=== PATIENT | female | born 1960 | race Caucasian/White ===

== ENCOUNTER 2022-07-08 05:27 | Inpatient (IN) | payer BC ==
[2022-07-08] VITALS (25 sets, daily range): BP systolic 102–154; BP diastolic 41–88
[~2022-07-08] VITALS: Ht 165.1 cm; Wt 68.0 kg
[~2022-07-08 05:27] MED LIST: ACET-2605 PO; BUPR300T52 PO; ESTR1PAT7 TD; IBUP-51 PO; NORE5TAB PO; [UNRECOGNIZED DRUG - OTHER] PO
--- NOTE | 2022-07-08 05:35 | NUR ---
[id number]. MID STERNAL CP RADIATING TO BACK X 0230. +N/+V. W/ ASSOCIATED SOB GIVEN 1 SPRAY NITRO, 324 ASA, ZOFRAN 4MG. PATIENT IS AAOX4. ABLE TO MAKE NEEDS KNOWN. STILL NAUSEATED. PLACED COMFORTABLY IN BED. VITALS CHECKED.
--- NOTE | 2022-07-08 05:40 | NUR ---
PT CAME WITH IV BAKARI G20 ON LEFT HAND
--- NOTE | 2022-07-08 05:50 | NUR ---
EKG DONE, STRIP ATTACHED TO CHART
[2022-07-08] MEDS ORDERED: ONDANSETRON HCL/PF 4 MG/2 ML VIAL IVP ONE (06:30)
[2022-07-08] MEDS ORDERED: MORPHINE SULFATE INJ 2 MG/ML DISP.SYRIN IV ONE (06:30)
[2022-07-08 06:32] LABS: BASOPHILS % (AUTO) 0.3 % (0.0-2.0); EOSINOPHILS % (AUTO) 0.3 % (0.0-6.0); HEMATOCRIT 41 % (33-45); HEMOGLOBIN 13.6 g/dL (11.5-14.8); LYMPHOCYTES # (AUTO) 1.3 K/uL (0.8-4.8); LYMPHOCYTES % (AUTO) 9.3 % (20.0-44.0); MEAN CORPUSCULAR HGB CONC 33 g/dl (31.0-36.0); MEAN CORPUSCULAR VOLUME 90 fL (82-100); MONOCYTES # (AUTO) 0.5 K/uL (0.1-1.30); MONOCYTES % (AUTO) 3.6 % (2.0-12.0); NEUTROPHILS # (AUTO) 11.9 K/uL (1.8-8.9); NEUTROPHILS % (AUTO) 86.5 % (43.0-81.0); PLATELET COUNT (AUTO) 338 K/uL (150-450); RED BLOOD CELL COUNT(AUTO) 4.56 MIL/uL (4.0-5.2); WHITE BLOOD COUNT (AUTO) 13.7 K/uL (4.3-11.0)
[2022-07-08 06:45] LABS: CARBON DIOXIDE 21 mmol/L (21-32); CHLORIDE 107 mmol/L (98-107); CREATININE 0.9 mg/dL (0.6-1.3); GLUCOSE 148 mg/dL (74-106); POTASSIUM 3.4 mmol/L (3.5-5.1); SODIUM SERUM 140 mmol/L (136-145); UREA NITROGEN, BLOOD 20 mg/dL (7-18)
[2022-07-08] MEDS ORDERED: MORPHINE SULFATE INJ 4 MG/ML DISP.SYRIN ONE (06:57)
[2022-07-08] MEDS ORDERED: ONDANSETRON 4 MG TAB.RAPDIS ONE (06:57)
[2022-07-08] MEDS ORDERED: ASPIRIN 325 MG TABLET ONE (06:58)
[2022-07-08] MEDS ORDERED: ONDANSETRON HCL/PF 4 MG/2 ML VIAL ONE (06:58)
[2022-07-08] MEDS ORDERED: ASPIRIN 325 MG TABLET PO ONE (07:00)
--- NOTE | 2022-07-08 07:00 | NUR ---
DR ROMERO MADE AWARE ABOUT PT CRITICAL LAB: TROP 274
--- NOTE | 2022-07-08 07:17 | NUR ---
COVID SWAB DONE AND SENT TO LAB
--- NOTE | 2022-07-08 07:21 | NUR ---
XRAY DONE AT BEDSIDE
--- NOTE | 2022-07-08 07:21 | NUR ---
REPORT GIVEN TO ALLEN LEDEZMA
[2022-07-08] MEDS ORDERED: ENOXAPARIN SODIUM 60 MG/0.6 ML DISP.SYRIN SQ ONE ×2 (07:30→07:38)
--- NOTE | 2022-07-08 11:05 | NUR ---
PT ASSISTED TO GO TO RESTROOM
--- NOTE | 2022-07-08 11:12 | NUR ---
MD MADE AWARE ABOUT PT REQUEST ABOUT XYLOCAINE SPRAY FOR HER BIG TOE L INJURY. PAIN ISAT PRESENT IS 4/10 AT THE BACK
--- NOTE | 2022-07-08 11:24 | NUR ---
room 324-2
--- NOTE | 2022-07-08 11:45 | NUR ---
DR WHATLEY AT BEDSIDE
--- NOTE | 2022-07-08 11:51 | NUR ---
npo per DR. Vegas
[2022-07-08] MEDS ORDERED: METOPROLOL TARTRATE INJ 5 MG/5 ML AMPUL IV ONE (12:00)
--- NOTE | 2022-07-08 12:05 | NUR ---
report given to Angela for continuation of care
[2022-07-08] MEDS ORDERED: ONDANSETRON HCL/PF 4 MG/2 ML VIAL IVP PRN (13:30)
[2022-07-08] MEDS ORDERED: ACETAMINOPHEN 325 MG TABLET PO PRN (13:30)
[2022-07-08] MEDS ORDERED: MAG HYDROX/AL HYDROX/SIMETH 30 ML UDC PO PRN (13:30)
[2022-07-08] MEDS ORDERED: MAGNESIUM HYDROXIDE 30 ML UDC PO PRN (13:30)
[2022-07-08] MEDS ORDERED: ZOLPIDEM TARTRATE 5 MG TABLET PO PRN (13:30)
[2022-07-08] MEDS ORDERED: Z GUARD REMEDY 4 OZ OINT TP PRN (13:30)
[2022-07-08] MEDS ORDERED: MORPHINE SULFATE INJ 2 MG/ML DISP.SYRIN IV PRN (13:30)
--- NOTE | 2022-07-08 13:47 | NUR ---
patient taken to OR
[2022-07-08] MEDS ORDERED: IV SET PRIMARY PUMP SET 1 EA INFUS.SET MC ONE (13:50)
[2022-07-08] MEDS ORDERED: IV NS 0.9% 1,000 ML ONE (13:50)
[2022-07-08] MEDS ORDERED: IODIXANOL 150 ML IV ONE (13:51)
[2022-07-08] MEDS ORDERED: methylPREDNISolone SOD SUCC 125 MG/2ML VIAL ONE (13:51)
[2022-07-08] MEDS ORDERED: LIDOCAINE HCL/MPF 1% 30 ML VIAL IJ ONE (13:51)
[2022-07-08] MEDS ORDERED: NTG 25 MG/D5W 250 ML BTL 25 MG/250 ML BTL IV ONE (13:52)
[2022-07-08] MEDS ORDERED: MIDAZOLAM HCL 2 MG/2ML VIAL ONE (14:20)
[2022-07-08] MEDS ORDERED: FENTANYL PF 100MCG/2ML AMPUL ONE (14:20)
--- NOTE | 2022-07-08 15:25 | NUR ---
RN NOTES RECEIVED PT FROM EXCHANGE ENGINEER, PT IS A/Ox4,ON RA, O2 SAT WNL, NO DISTESS NOTED, ON TELE SR HR IN 70'S, TR BAND COMPRESSION DEVICE ON ON RIGHT WRIST AND ALIGNED WITH GREEN MARKER , BALLOON ,16 INFLATED , SITE CLEAN , DRY, NO SIGN OF BLEEDING AND HEMATOMA NOTED . PT IS ABLE TO MOVE HIS FINGERS , ARNOLD ANY NUMBNESS AND TINGLING, STRONG POSITIVE RIGHT RADIAL PULSE NOTED ON PALPATION , PT HAS DRESSING ON RIGHT FEMORAL SITE, CDI, NO HEMATOMA NOTED, POSITIVE DP AND PT PULSES NOTED ON PALPATION . VSS STABLE , DENIES ANY CHEST PAIN AT THIS TIME, CONTINUE TO MONITOR .
--- NOTE | 2022-07-08 17:39 | NUR ---
RN NOTES TR BAND REMOVED ON RIGHT WRIST , PT DENIES ANY NUMBNESS AND TINGLING , ABLE TO MORE FINGERS , SITE CLEAN AND DRY, DRESSING TO RIGHT GROIN CDI, NO COMPLICATION NOTED AT THE SITE , CONTINUE TO MONITOR
--- NOTE | 2022-07-08 18:29 | NUR ---
RN NOTES PT STABLE , NO COMPLICATION NOTED, WILL ENDORSE TO PHYSICIAN ANESTHESIOLOGIST NURSE FOR CONTINUITY OF CARE
[2022-07-08] MEDS: ENOXAPARIN SODIUM 60 MG/0.6 ML DISP.SYRIN SQ SCH (22:59)
[2022-07-08] MEDS: METOPROLOL TARTRATE 50 MG TABLET PO SCH (23:01)
[2022-07-09] VITALS (29 sets, daily range): BP systolic 75–144; BP diastolic 45–119
[2022-07-09 05:17] LABS: BASOPHILS % (AUTO) 0.1 % (0.0-2.0); HEMATOCRIT 40 % (33-45); HEMOGLOBIN 13.3 g/dL (11.5-14.8); LYMPHOCYTES # (AUTO) 1.6 K/uL (0.8-4.8); LYMPHOCYTES % (AUTO) 16.6 % (20.0-44.0); MEAN CORPUSCULAR HGB CONC 33 g/dl (31.0-36.0); MEAN CORPUSCULAR VOLUME 91 fL (82-100); MONOCYTES # (AUTO) 0.6 K/uL (0.1-1.30); MONOCYTES % (AUTO) 5.8 % (2.0-12.0); NEUTROPHILS # (AUTO) 7.5 K/uL (1.8-8.9); NEUTROPHILS % (AUTO) 77.5 % (43.0-81.0); PLATELET COUNT (AUTO) 332 K/uL (150-450); RED BLOOD CELL COUNT(AUTO) 4.41 MIL/uL (4.0-5.2); WHITE BLOOD COUNT (AUTO) 9.6 K/uL (4.3-11.0)
[2022-07-09 05:27] LABS: CALCIUM, SERUM 8.9 mg/dL (8.5-10.1); CREATININE 0.9 mg/dL (0.6-1.3); MAGNESIUM 2.3 mg/dL (1.8-2.4); PHOSPHORUS 4.7 mg/dL (2.5-4.9); POTASSIUM 4.2 mmol/L (3.5-5.1)
--- NOTE | 2022-07-09 07:25 | NUR ---
RN NOTES RECEIVED PT ASLEEP, EASILY AROUSABLE. PT IS A/Ox4,ON ROOM AIR TOLERATING WELL AT 96%. PT ON TELE MONITOR. PT HAS LEFT AC 18 GUAGE. IV PATENT AND FLUSHING WELL. PT IS AMBULATORY AND INDEPENENT. ALL SAFETY MEASURES IN PLACE. BED LOCKED IN LOWEST POSITION, SIDE RAILS UP X2.
[2022-07-09] MEDS: ATORVASTATIN 40 MG TABLET PO SCH ×2 (08:13→08:27)
[2022-07-09] MEDS: ENOXAPARIN SODIUM 60 MG/0.6 ML DISP.SYRIN SQ SCH (08:15)
[2022-07-09] MEDS: METOPROLOL TARTRATE 50 MG TABLET PO SCH (08:15)
[2022-07-09] MEDS ORDERED: ASPIRIN 81 MG TAB.CHEW PO SCH (09:00)
--- NOTE | 2022-07-09 09:03 | NUR ---
WOUND CARE CONSULT: PT PRESENTS WITH LEFT GREAT TOE REDNESS WITH NAIL WOUND, PRESENT ON ADMISSION. DR FOLEY CALLED FOR DPM CONSULT. IN AGREEMENT WITH PLAN OF CARE.
[2022-07-09 09:49] LABS: CHOLESTEROL 268 mg/dL (<200); HDL CHOLESTEROL 60 mg/dL (40-60); LDL 192 mg/dL (0-99); TRIGLYCERIDES 118 mg/dL (30-150)
--- NOTE | 2022-07-09 09:55 | NUR ---
rn note notified dr. rodas that pt asking for medicine for sore throat . ordered sore throat lozenges
[2022-07-09] MEDS ORDERED: MENTHOL/CETYLPYRD (CEPACOL) 1 LOZ LOZENGE PO PRN (10:00)
--- NOTE | 2022-07-09 10:02 | NUR ---
rn note notified dr. rodas of critical troponin 232. aware.
[2022-07-09] MEDS ORDERED: IV NS 0.9% 1,000 ML IV ONE ×2 (13:30)
[2022-07-09] MEDS ORDERED: ASPI-1169 PO (13:55)
[2022-07-09] MEDS ORDERED: METO50TA16 PO ×2 (13:55→14:28)
--- NOTE | 2022-07-09 14:26 | NUR ---
rn noted notified that bp 98/59, 92/61, 94/57 and pt is concerned of low bp. metoprol was given earlier in the morning due to being within parametes to give said to monitor bp for another 2 hours if syp above 110 can discharge her.
--- NOTE | 2022-07-09 14:48 | NUR ---
rn note datascope vital signs. vital signs inputed 1000, 1200 is incorrect.please disregard
--- NOTE | 2022-07-09 16:54 | NUR ---
editor trade journal note pt left in stable condition. pt alert and oriented x4. pt last bp 110/76. removed iv and icu monitor box.went over discharge instruction with patient and daughters. pt verbalized understanding and agreed to follow-up with Dr. Solano in 1 week. all belongings with patent escorted out by nursing staff by wheelchair.picked up by daughters
== END 2022-07-09 16:46 | disposition home or self-care (01) | DRG 280 ==
LOC: ER 05:28 → TELE 11:36 → ICU 15:26
PROVIDERS: ADMIT Internal Medicine; ATTEND Internal Medicine
PROC: 4A023N7 Measurement of Cardiac Sampling and Pressure, Left Heart, Percutaneous Approach (ICD-10-PCS; principal; 2022-07-08)
PROC: B211YZZ Fluoroscopy of Multiple Coronary Arteries using Other Contrast (ICD-10-PCS; 2022-07-08)
PROC: B215YZZ Fluoroscopy of Left Heart using Other Contrast (ICD-10-PCS; 2022-07-08)
PROC: B41FYZZ Fluoroscopy of Right Lower Extremity Arteries using Other Contrast (ICD-10-PCS; 2022-07-08)
DX: I21.4 Non-ST elevation (NSTEMI) myocardial infarction (principal); N17.0 Acute kidney failure with tubular necrosis; M19.90 Unspecified osteoarthritis, unspecified site; Z87.891 Personal history of nicotine dependence; E87.6 Hypokalemia; I25.10 Atherosclerotic heart disease of native coronary artery without angina pectoris; Z20.822 Contact with and (suspected) exposure to COVID-19; I10 Essential (primary) hypertension; K21.9 Gastro-esophageal reflux disease without esophagitis; Z91.041 Radiographic dye allergy status; Z91.013 Allergy to seafood; Z79.899 Other long term (current) drug therapy; Z82.49 Family history of ischemic heart disease and other diseases of the circulatory system; I25.2 Old myocardial infarction
CPT/HCPCS: 36415; 71045-TC; 80048-TC; 80061-TC; 83735-TC; 83880; 84100-TC; 84484-TC; 85025-TC; 85610-TC; 85730-TC; 87081-TC; 93307-TC; A4223; C1887; C1894; C9803; G0378; G0500; J1644; J1650; J2250; J2270; J2405; J2930; J3010; J3490; J7030; Q0162; Q9967